=== PATIENT | male | born 1975 | race Caucasian/White ===

== ENCOUNTER → 2020-01-12 | Outpatient (CLI) | payer OTHER | END | disposition home or self-care (01) | LOC: NUCLEAR 07:53 | DX: R07.89 Other chest pain (principal); E03.8 Other specified hypothyroidism; E78.89 Other lipoprotein metabolism disorders; I10 Essential (primary) hypertension; Z11.59 Encounter for screening for other viral diseases; B34.8 Other viral infections of unspecified site; B30.2 Viral pharyngoconjunctivitis; N41.0 Acute prostatitis ==

== ENCOUNTER 2025-01-09 08:09 | Outpatient (CLI) | payer OTHER | END 2025-01-09 08:22 | disposition home or self-care (01) | LOC: RAD 08:09 | PROVIDERS: ATTEND Physical Medicine & Rehabilitation | DX: M54.59 Other low back pain (principal) ==